=== PATIENT | male | born 1970 ===

== ENCOUNTER 2016-11-27 22:35 | Emergency (ER) | payer MEDICAID ==
[2016-11-27 22:36] VITALS: BMI 34.4
[2016-11-27 23:30] VITALS: BP 112/69; RESP 18; TEMP 98; O2SAT 99
[2016-11-27] MEDS ORDERED: cefTRIAXone (Rocephin) 250 mg Inj IM STA (23:38)
--- NOTE | 2016-11-28 00:05 | C.PDOC ---
History Of Present Illness 46 y/o male reports history of unprotected sexual intercourse 1 week ago, now c/ o dysuria. Patient otherwise denies fever, chills, lesions, rash, or abdominal pain. Time Seen by Provider: 11/27/16 23:37 Chief Complaint (Nursing): Male Genitourinary History Per: Patient History/Exam Limitations: no limitations Onset/Duration Of Symptoms: Days Current Symptoms Are (Timing): Still Present Associated Symptoms: Urinary Symptoms (dysuria). denies: Fever, Nausea, Vomiting Recent travel outside of the [place]: No Past Medical History Reviewed: Historical Data, Nursing Documentation, Vital Signs Vital Signs: Last Vital Signs Temp 98.0 F 11/27/16 23:05 Pulse 66 11/28/16 00:17 Resp 18 11/28/16 00:17 BP 112/69 11/27/16 23:05 Pulse Ox 99 11/28/16 02:16 - Medical History PMH: No Chronic Diseases Family History: States: Unknown Family Hx - Social History Hx Alcohol Use: Yes Hx Substance Use: Yes (stopped drugs for 3 years) - Immunization History Hx Tetanus Toxoid Vaccination: No Hx Influenza Vaccination: No Hx Pneumococcal Vaccination: No Review Of Systems Except As Marked, All Systems Reviewed And Found Negative. Constitutional: Negative for: Fever, Chills Respiratory: Negative for: Cough, Shortness of Breath, Wheezing Gastrointestinal: Negative for: Nausea, Vomiting Genitourinary: Positive for: Dysuria. Negative for: Frequency Skin: Negative for: Rash Physical Exam - Physical Exam Appears: Non-toxic, No Acute Distress Skin: Normal Color, Warm, Dry Head: Normacephalic Eye(s): bilateral: Normal Inspection Oral Mucosa: Moist, No Other (lesions) Throat: Normal, No Erythema, No Exudate Neck: Supple Gastrointestinal/Abdominal: Soft, No Tenderness Back: Normal Inspection Male Genital: Other (refused genitalia exam) Extremity: Normal ROM, Capillary Refill (< 2 sec. ) Neurological/Psych: Oriented x3, Normal Speech, Normal Cognition ED Course And Treatment O2 Sat by Pulse Oximetry: 99 (RA) Pulse Ox Interpretation: Normal Progress Note: Treated with Rocephin and Zithromax in ER. Patient educated on safe sex practice. Advised follow up with clinic. Disposition Counseled Patient/Family Regarding: Diagnosis, Need For Followup - Disposition Referrals: 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 - Scribe Statement The provider has reviewed the documentation as recorded by the Dileepibkia Campbell All medical record entries made by the Alistair were at my direction and personally dictated by me. I have reviewed the chart and agree that the record accurately reflects my personal performance of the history, physical exam, medical decision making, and the department course for this patient. I have also personally directed, reviewed, and agree with the discharge instructions and disposition.
[2016-11-28 00:17] VITALS: PULSE 66
== END 2016-11-28 00:17 | disposition home or self-care (01) ==
LOC: C.ER 22:35
DX: N34.2 Other urethritis (principal)
CPT/HCPCS: 87491; 87591; 96372; 99285; J0696

== ENCOUNTER 2017-01-24 02:32 | Emergency (ER) | payer MEDICAID ==
[2017-01-24 02:33] VITALS: BMI 34.4
[2017-01-24 02:43] VITALS: O2SAT 99
[2017-01-24] MEDS ORDERED: cefTRIAXone (Rocephin) 250 mg Inj IM STA (03:09)
[2017-01-24] MEDS ORDERED: Penicillin G Benzathine 2.4 Mill Unit/4 ml Syr IM ONE ×2 (03:16→03:29)
--- NOTE | 2017-01-24 03:17 | C.PDOC ---
Time Seen by Provider: 01/24/17 02:50 Chief Complaint (Nursing): Abnormal Skin Integrity Past Medical History Vital Signs: Last Vital Signs Temp 97.9 F 01/24/17 02:42 Pulse 76 01/24/17 02:42 Resp 18 01/24/17 02:42 BP 109/64 01/24/17 02:42 Pulse Ox 99 01/24/17 02:42 - Medical History PMH: Deep Vein Thrombosis (tx with xarelto 3mo.) Family History: States: Unknown Family Hx - Social History Hx Alcohol Use: Yes Hx Substance Use: Yes (stopped drugs for 3 years) - Immunization History Hx Tetanus Toxoid Vaccination: No Hx Influenza Vaccination: No Hx Pneumococcal Vaccination: No ED Course And Treatment O2 Sat by Pulse Oximetry: 99 Pulse Ox Interpretation: Normal Disposition - Disposition Referrals: FAMILY PROVIDER,NO [Primary Care Provider] -
--- NOTE | 2017-01-24 03:22 | C.PDOC ---
History Of Present Illness pt was treated for std last month, however he states he has a rash on his glans, . non painful. states he has avoided any intercourse. denies any other rashes, on body or palms and feet Time Seen by Provider: 01/24/17 02:50 Chief Complaint (Nursing): Abnormal Skin Integrity History Per: Patient History/Exam Limitations: no limitations Onset/Duration Of Symptoms: Days Current Symptoms Are (Timing): Still Present Severity: None Pain Scale Rating Of: 0 Quality Of Discomfort: Dull Associated Symptoms: denies: Fever, Chills, Nausea, Vomiting Alleviating Factors: None Recent travel outside of the [place]: No Past Medical History Reviewed: Historical Data, Nursing Documentation, Vital Signs Vital Signs: Last Vital Signs Temp 97.9 F 01/24/17 02:42 Pulse 76 01/24/17 02:42 Resp 18 01/24/17 02:42 BP 109/64 01/24/17 02:42 Pulse Ox 99 01/24/17 03:24 - Medical History PMH: Deep Vein Thrombosis (tx with xarelto 3mo.) Family History: States: No Known Family Hx - Social History Hx Alcohol Use: Yes Hx Substance Use: Yes (stopped drugs for 3 years) - Immunization History Hx Tetanus Toxoid Vaccination: No Hx Influenza Vaccination: No Hx Pneumococcal Vaccination: No Review Of Systems Constitutional: Negative for: Fever, Chills Gastrointestinal: Negative for: Nausea, Vomiting Genitourinary: Positive for: Rash Musculoskeletal: Negative for: Hand Pain Skin: Positive for: Rash. Negative for: Lesions, Jaundice, Bruising Neurological: Negative for: Weakness Psych: Negative for: Anxiety Physical Exam - Physical Exam Appears: Non-toxic, No Acute Distress Skin: Warm, Dry, Rash (glans penis) Chest: Symmetrical Cardiovascular: Rhythm Regular Respiratory: No Rales, No Rhonchi, No Wheezing Gastrointestinal/Abdominal: Soft, No Tenderness, No Distention Back: No CVA Tenderness Male Genital: No Testicular Tenderness, No Testicular Swelling, No Inguinal Tenderness, Circumcised, Other (painles ulcer glans of penis) Extremity: No Tenderness ED Course And Treatment O2 Sat by Pulse Oximetry: 99 Pulse Ox Interpretation: Normal Disposition Counseled Patient/Family Regarding: Studies Performed, Diagnosis, Need For Followup - Disposition Disposition: HOME/ ROUTINE Disposition Time: 03:19 Condition: FAIR Instructions: Sexually Transmitted Diseases (ED) - Clinical Impression Clinical Impression: STD (sexually transmitted disease)
[2017-01-24 03:38] LABS: BASO # 0.1 K/uL (0.0-0.2); BASO % 1.1 % (0.0-2.0); EOS # 0.4 K/uL (0.0-0.7); EOS % 6.2 % (0.0-4.0); HEMATOCRIT 39.7 % (35.0-51.0); LYMPH # 2.4 K/uL (1.0-4.3); LYMPH % 42.6 % (20.0-40.0); MEAN CELL VOLUME 90.8 fL (80.0-94.0); MEAN CORPUSCULAR HEMOGLOBIN 30.7 pg (27.0-31.0); MEAN CORPUSCULAR HGB CONC 33.8 g/dL (33.0-37.0); MEAN PLATELET VOLUME 8.8 fL (7.2-11.7); MONO # 0.5 K/uL (0.0-0.8); MONO % 9.2 % (0.0-10.0); NRBC % 0.4 % (0.0-2.0); RED CELL DISTRIBUTION WIDTH 13.8 % (11.5-14.5); WHITE BLOOD COUNT 5.7 K/uL (4.8-10.8)
[2017-01-24 03:50] VITALS: BP 118/70; PULSE 82; RESP 20; TEMP 98
[2017-01-24 15:46] LABS: RAPID PLASMA REAGIN REACTIVE (NONREACTIVE)
== END 2017-01-24 03:50 | disposition home or self-care (01) ==
LOC: SUPCPDRO 02:32 → C.ER 02:32
DX: A64 Unspecified sexually transmitted disease (principal)
CPT/HCPCS: 85025; 86592; 86631; 86632; 86780; 96372; 99283; J0561

== ENCOUNTER 2017-05-02 13:55 | Emergency (ER) | payer MEDICAID ==
[2017-05-02 13:55] VITALS: BMI 34.4
[2017-05-02 14:15] VITALS: BP 114/69; PULSE 78; TEMP 98.3; O2SAT 98
--- NOTE | 2017-05-02 15:47 | C.PDOC ---
History Of Present Illness 47 y/o male presents to ED with complaints of all fingernails discoloration, fingernails cracking and peeling for "years". Patient also complaints of pain and burning sensation to right side of chest and back with an associated rash for 2 days. Patient also reports erectile dysfunction for 1 year but denies fever, dysuria, hematuria, abdominal pain or any other complaints at this time. Chief Complaint (Nursing): Abnormal Skin Integrity History Per: Patient History/Exam Limitations: no limitations Onset/Duration Of Symptoms: Days Current Symptoms Are (Timing): Still Present Quality Of Symptoms: Painful Past Medical History Reviewed: Historical Data, Nursing Documentation, Vital Signs Vital Signs: Last Vital Signs Temp 98.3 F 05/02/17 14:13 Pulse 78 05/02/17 14:13 Resp 20 05/02/17 16:00 BP 114/69 05/02/17 14:13 Pulse Ox 98 05/04/17 08:32 - Medical History PMH: Deep Vein Thrombosis Surgical History: No Surg Hx Family History: States: No Known Family Hx - Social History Hx Alcohol Use: Yes Hx Substance Use: Yes (stopped drugs for 3 years) - Immunization History Hx Tetanus Toxoid Vaccination: No Hx Influenza Vaccination: No Hx Pneumococcal Vaccination: No Review Of Systems Except As Marked, All Systems Reviewed And Found Negative. Constitutional: Negative for: Fever, Chills Gastrointestinal: Negative for: Nausea, Vomiting Skin: Negative for: Rash Neurological: Negative for: Weakness, Numbness Physical Exam - Physical Exam Appears: Non-toxic, No Acute Distress Skin: Warm, Dry, Rash (vesicular clusters to right side of anterior and posterior chest no signs of infection) Head: Atraumatic, Normacephalic Eye(s): bilateral: Normal Inspection, EOMI Oral Mucosa: Moist Neck: Normal ROM, Supple Chest: Symmetrical Extremity: Normal ROM, Capillary Refill (<2 seconds), No Deformity, No Swelling , Other (cracked discolorated fingernails) Pulses: Left Radial: Normal, Right Radial: Normal Neurological/Psych: Oriented x3 ED Course And Treatment O2 Sat by Pulse Oximetry: 98 (RA) Pulse Ox Interpretation: Normal Progress Note: Rash consistent with herpes zoster. 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 Disposition - Disposition Referrals: Erick Trevino MD [Staff Provider] - Disposition: HOME/ ROUTINE Disposition Time: 15:44 Condition: STABLE Additional Instructions: Follow up with your PMD, [employer] and Urologist within 2-3 days. Return to ED if feel worse. 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 - Scribe Statement The provider has reviewed the documentation as recorded by the Alistair Celaya All medical record entries made by the Alistair were at my direction and personally dictated by me. I have reviewed the chart and agree that the record accurately reflects my personal performance of the history, physical exam, medical decision making, and the department course for this patient. I have also personally directed, reviewed, and agree with the discharge instructions and disposition.
[2017-05-02 16:00] VITALS: RESP 20
== END 2017-05-02 16:00 | disposition home or self-care (01) ==
LOC: C.ER 13:55
DX: B35.1 Tinea unguium (principal); B02.9 Zoster without complications; N52.9 Male erectile dysfunction, unspecified

== ENCOUNTER 2018-05-29 11:13 | Emergency (ER) | payer MEDICAID, OTHER ==
[2018-05-29 11:13] VITALS: BMI 34.4
[2018-05-29 11:43] VITALS: O2SAT 100
[2018-05-29] MEDS ORDERED: Lidocaine 5% Patch TD STA (12:58)
[2018-05-29] MEDS ORDERED: Lidocaine 5% Patch TD ONE (13:12)
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
[2018-05-29 13:56] VITALS: BP 96/62; PULSE 56; RESP 20; TEMP 98.9
== END 2018-05-29 13:59 | disposition home or self-care (01) ==
LOC: C.ER 11:13
DX: S39.012A Strain of muscle, fascia and tendon of lower back, initial encounter (principal); V49.49XA Driver injured in collision with other motor vehicles in traffic accident, initial encounter; Y92.410 Unspecified street and highway as the place of occurrence of the external cause